=== PATIENT | male | born 1995 | race African-American/Black ===

== ENCOUNTER 2019-10-22 15:14 | Emergency (ER) | payer MEDICAID ==
[~2019-10-22] VITALS: Ht 167.6 cm; Wt 66.0 kg
[2019-10-22] MEDS ORDERED: ACETAMINOPHEN WITH CODEINE 300/30MG TABLET PO STA (18:28)
[2019-10-22] MEDS ORDERED: HYDRALAZINE HCL 100MG TABLET PO ONE (18:30)
[2019-10-22] MEDS ORDERED: NITROGLYCERIN 0.4MG TABLET SL SL PRN (18:30)
[2019-10-22 18:48] LABS: BASOPHILS % 1.6 % (0.0-2.0); CHLORIDE 100 mEq/L (98-107); EOSINOPHILS % 4.6 % (0.0-5.0); HEMATOCRIT. 37.5 % (42.0-52.0); HEMOGLOBIN. 12.4 g/dL (14.0-18.0); LYMPHOCYTES % 12.4 % (20.0-50.0); MEAN CORPUSCULAR HEMOGLOBIN 33.4 pg (28.0-32.0); MEAN CORPUSCULAR VOLUME 100.7 fL (80.0-94.0); MEAN PLATELET VOLUME 8.1 fl (7.4-10.4); MONOCYTES % 5.2 % (2.0-8.0); NEUTROPHILS % 76.2 % (40.0-76.0); PLATELET 253 x1000/uL (130-400); RED BLOOD CELL COUNT 3.73 mill/uL (4.7-6.1); RED CELL DISTRIBUTION WIDTH 17.4 % (11.6-14.6)
[2019-10-22] MEDS ORDERED: ACETAMINOPHEN 325MG TABLET PO ONE (20:30)
[2019-10-22] MEDS ORDERED: ONDANSETRON HCL 4MG/2ML INJ IV STA (20:54)
[2019-10-22] MEDS ORDERED: MORPHINE SULFATE 4 MG/ML CPJ (NOT FOR IM USE) IV STA (20:54)
[2019-10-22 22:11] VITALS: BP 175/101
== END 2019-10-22 22:12 | disposition home or self-care (01) ==
LOC: ER 15:14
DX: R07.89 Other chest pain (principal); I12.0 Hypertensive chronic kidney disease with stage 5 chronic kidney disease or end stage renal disease; N18.6 End stage renal disease; Z99.2 Dependence on renal dialysis; Z98.890 Other specified postprocedural states
CPT/HCPCS: 36415; 71045; 84484; 93005; 99284

== ENCOUNTER 2020-04-06 18:20 | Inpatient (IN) | payer MEDICAID ==
[~2020-04-06] VITALS: Ht 167.6 cm; Wt 70.8 kg
[2020-04-06] MEDS ORDERED: ONDANSETRON HCL 4MG/2ML INJ IV STA (19:03)
[2020-04-06] MEDS ORDERED: ONDANSETRON HCL 4MG/2ML INJ IV ONE (19:15)
[2020-04-06] MEDS ORDERED: CLONIDINE 0.2MG TABLET PO ONE (19:15)
[2020-04-06 20:30] LABS: BASOPHILS % 0.6 % (0.0-2.0); HEMATOCRIT. 36.7 % (42.0-52.0); HEMOGLOBIN. 12.1 g/dL (14.0-18.0); LYMPHOCYTES % 9.2 % (20.0-50.0); MEAN CORPUSCULAR HEMOGLOBIN 33.4 pg (28.0-32.0); MEAN CORPUSCULAR VOLUME 101.5 fL (80.0-94.0); MEAN PLATELET VOLUME 7.7 fl (7.4-10.4); NEUTROPHILS % 82.2 % (40.0-76.0); PLATELET 233 x1000/uL (130-400); RED BLOOD CELL COUNT 3.62 mill/uL (4.7-6.1); RED CELL DISTRIBUTION WIDTH 16.3 % (11.6-14.6)
[2020-04-06 20:33] LABS: CHLORIDE 102 mEq/L (98-107)
[2020-04-06] MEDS ORDERED: SODIUM BICARBONATE 8.4% 1 MEQ/ML 50ML SYR IV ONE (21:30)
[2020-04-06] MEDS ORDERED: INSULIN REGULAR (HUMULIN R) 300UNITS/3ML IV ONE (21:30)
[2020-04-06] MEDS ORDERED: SODIUM POLYSTYRENE SULFONATE 15 G/60 ML BOT PO ONE (21:30)
[2020-04-06] MEDS ORDERED: ALBUTEROL (0.083%) 2.5MG/3ML NEB HHN ONE (21:30)
[2020-04-06] MEDS ORDERED: HYDRALAZINE 20MG/ML VIAL IV ONE (21:30)
[2020-04-06] MEDS ORDERED: DEXTROSE 50% WATER 50ML SYRINGE IV ONE (21:30)
[2020-04-07] MEDS ORDERED: ACETAMINOPHEN 325MG TABLET PO PRN (09:15)
[2020-04-07] MEDS ORDERED: NIFEDIPINE XL 60MG TAB PO SCH (09:15)
[2020-04-07] MEDS ORDERED: ONDANSETRON HCL 4MG/2ML INJ IV PRN (09:15)
[2020-04-07] MEDS: CLONIDINE 0.1MG TABLET PO PRN (10:36)
[2020-04-07] MEDS ORDERED: HYDRALAZINE HCL 100MG TABLET PO ONE (11:00)
[2020-04-07] MEDS: HYDRALAZINE HCL 100MG TABLET PO SCH ×2 (14:55→21:35)
[2020-04-07 16:42] VITALS: BP 158/97
[2020-04-07] MEDS: NIFEDIPINE XL 60MG TAB PO SCH (18:11)
[2020-04-07] MEDS ORDERED: SERT50TA MT (18:20)
[2020-04-07] MEDS ORDERED: CALC-586 MT (18:23)
[2020-04-07] MEDS ORDERED: DOXA8TAB81 MT (18:23)
[2020-04-07] MEDS ORDERED: CLON1PAT12 TP (18:23)
[2020-04-07] MEDS ORDERED: LISI40TA4 MT (18:26)
[2020-04-07] MEDS ORDERED: FOLI-43 MT (18:26)
[2020-04-07] MEDS ORDERED: HYDR-4134 MT (18:26)
[2020-04-07] MEDS ORDERED: FOLI0.8T23 MT (18:26)
[2020-04-07] MEDS ORDERED: LEVOFLOXACIN 500MG PREMIX 100 ML IV SCH (18:30)
[2020-04-07 20:00] VITALS: BP 162/93
[2020-04-08] VITALS: BP 165/90
[2020-04-08] MEDS: CLONIDINE 0.1MG TABLET PO PRN (03:48)
[2020-04-08 04:00] VITALS: BP 161/96
[2020-04-08 05:53] LABS: BASOPHILS % 1.3 % (0.0-2.0); EOSINOPHILS % 4.2 % (0.0-5.0); HEMATOCRIT. 38.7 % (42.0-52.0); HEMOGLOBIN. 12.6 g/dL (14.0-18.0); LYMPHOCYTES % 13.3 % (20.0-50.0); MEAN CORPUSCULAR HEMOGLOBIN 33.1 pg (28.0-32.0); MEAN CORPUSCULAR VOLUME 101.2 fL (80.0-94.0); MEAN PLATELET VOLUME 7.8 fl (7.4-10.4); MONOCYTES % 6.8 % (2.0-8.0); NEUTROPHILS % 74.4 % (40.0-76.0); PLATELET 226 x1000/uL (130-400); RED BLOOD CELL COUNT 3.82 mill/uL (4.7-6.1); RED CELL DISTRIBUTION WIDTH 16.4 % (11.6-14.6)
[2020-04-08] MEDS: HYDRALAZINE HCL 100MG TABLET PO SCH ×2 (05:59→12:50)
[2020-04-08 08:03] VITALS: BP 156/98
[2020-04-08] MEDS: NIFEDIPINE XL 60MG TAB PO SCH ×2 (09:00→09:27)
[2020-04-08 12:00] VITALS: BP 146/86
[2020-04-08] MEDS ORDERED: LEVO500T2 MT (12:46)
[2020-04-08] MEDS ORDERED: HYDR100T26 PO (12:47)
[2020-04-08] MEDS ORDERED: NIFE-32 MT (12:47)
[2020-04-08 13:41] VITALS: BP 146/94
[2020-04-08] MEDS ORDERED: CLONIDINE 0.1MG TABLET PO SCH (14:00)
[2020-04-09] MEDS ORDERED: LEVOFLOXACIN 250MG PREMIX 50 ML IV SCH (17:45)
== END 2020-04-08 14:20 | disposition home or self-care (01) | DRG 720 ==
LOC: ER 18:20 → 6WST 04-07 00:14 → EDBEDREQTM 04-07 00:27 → EDBEDREQ 04-07 00:27 → EDBEDREQDT 04-07 00:27 → ENRESERV 04-07 15:41
PROVIDERS: ADMIT Internal Medicine; ATTEND Internal Medicine
PROC: 5A1D70Z Performance of Urinary Filtration, Intermittent, Less than 6 Hours Per Day (ICD-10-PCS; principal; 2020-04-07)
DX: A41.9 Sepsis, unspecified organism (principal); E87.5 Hyperkalemia; I12.0 Hypertensive chronic kidney disease with stage 5 chronic kidney disease or end stage renal disease; D64.9 Anemia, unspecified; I16.0 Hypertensive urgency; N18.6 End stage renal disease; Z99.2 Dependence on renal dialysis; Z91.048 Other nonmedicinal substance allergy status; Z79.899 Other long term (current) drug therapy
CPT/HCPCS: 36415; 71045; 80048; 80053; 84132; 84145; 85025; 93005; 94640; 99285; J0360; J1815; J1956; J2405; J3490

== ENCOUNTER 2021-02-25 09:55 | Emergency (ER) | payer MEDICAID, OTHER ==
[~2021-02-25] VITALS: Ht 167.6 cm; Wt 71.0 kg
[~2021-02-25 09:55] MED LIST: CALC-586 MT; CLON1PAT12 TP; DOXA8TAB81 MT; FOLI-43 MT; FOLI0.8T23 MT; HYDR100T26 PO; LEVO500T2 MT; NIFE-32 MT; SERT50TA MT
[2021-02-25 10:34] LABS: BASOPHILS % 0.9 % (0.0-2.0); EOSINOPHILS % 3.5 % (0.0-5.0); HEMATOCRIT. 22.3 % (42.0-52.0); HEMOGLOBIN. 7.4 g/dL (14.0-18.0); LYMPHOCYTES % 12.4 % (20.0-50.0); MEAN CORPUSCULAR HEMOGLOBIN 33.2 pg (28.0-32.0); MEAN CORPUSCULAR VOLUME 100.5 fL (80.0-94.0); MEAN PLATELET VOLUME 7.8 fl (7.4-10.4); MONOCYTES % 5.7 % (2.0-8.0); NEUTROPHILS % 77.5 % (40.0-76.0); PLATELET 208 x1000/uL (130-400); RED BLOOD CELL COUNT 2.22 mill/uL (4.7-6.1); RED CELL DISTRIBUTION WIDTH 14.9 % (11.6-14.6)
[2021-02-25] MEDS ORDERED: LISINOPRIL 40MG TABLET PO ONE (14:45)
[2021-02-25] MEDS ORDERED: HYDRALAZINE HCL 50MG TABLET PO ONE (14:45)
[2021-02-25] MEDS ORDERED: HYDRALAZINE 20MG/ML VIAL IV ONE (15:00)
[2021-02-25 17:59] VITALS: BP 165/96
== END 2021-02-25 18:28 | disposition short-term general hospital (02) ==
LOC: ER 10:34 → CANBEDREQ 19:17
DX: R06.02 Shortness of breath (principal); J81.1 Chronic pulmonary edema; Z98.890 Other specified postprocedural states; Z79.899 Other long term (current) drug therapy
CPT/HCPCS: 36415; 71045; 80048; 80076; 82962; 83605; 83690; 84484; 85025; 85379; 87040; 93005; 96374; 99285; J0360